=== PATIENT | female | born 1995 | race Asian ===

== ENCOUNTER 2024-04-26 10:59 | Emergency (ER) | payer MEDICAID ==
[~2024-04-26] VITALS: Ht 157.5 cm; Wt 79.8 kg
[2024-04-26 11:17] VITALS: O2SAT 97
[2024-04-26 11:45] LABS: BASOPHILS % 0.6 % (0.0-2.0); EOSINOPHILS % 1.9 % (0.0-5.0); HEMATOCRIT. 34.9 % (36.0-48.0); HEMOGLOBIN. 10.4 g/dL (12.0-16.0); LYMPHOCYTES % 21.8 % (20.0-50.0); MEAN CORPUSCULAR HEMOGLOBIN 19.7 pg (28.0-32.0); MEAN CORPUSCULAR HGB CONC 29.8 g/dL (31.0-37.0); MEAN CORPUSCULAR VOLUME 66.1 fL (81.0-99.0); MONOCYTES % 6.4 % (2.0-8.0); NEUTROPHILS % 69.3 % (40.0-76.0); PLATELET 355 x1000/uL (130-400); RED BLOOD CELL COUNT 5.27 mill/uL (4.2-5.4); RED CELL DISTRIBUTION WIDTH 17.4 % (11.6-14.6); WHITE BLOOD COUNT 11.8 x1000/uL (4.5-11.0)
[2024-04-26 11:55] LABS: CHLORIDE 110 mEq/L (98-107); POTASSIUM 3.8 mEq/L (3.5-5.1); SODIUM 140 mEq/L (136-145)
[2024-04-26 11:56] LABS: CARBON DIOXIDE 21 mEq/L (21-32)
[2024-04-26 12:01] LABS: CREATININE 0.8 mg/dL (0.6-1.0); GLUCOSE 99 mg/dL (70-105)
[2024-04-26 12:02] LABS: UREA NITROGEN BLOOD 7 mg/dL (9-23)
[2024-04-26 12:14] LABS: ADD RBC MORPHOLOGY YES; DIFFERENTIAL COMMENT 1
[2024-04-26 13:02] VITALS: BP 124/71; PULSE 77; RESP 16; TEMP 98.3
[2024-04-26 13:16] LABS: PLATELET ESTIMATE NORMAL
[2024-04-26 13:17] LABS: MICROCYTOSIS 4+
== END 2024-04-26 13:44 | disposition home or self-care (01) ==
LOC: ER 10:59
DX: D64.9 Anemia, unspecified (principal)
CPT/HCPCS: 36415; 80048; 85025; 86850; 86900; 99283